=== PATIENT | female | born 1995 | race Caucasian/White ===

== ENCOUNTER 2023-04-18 07:10 | Inpatient (IN) | payer OTHER, SELFPAY ==
[2023-04-18] VITALS (50 sets, daily range): BP systolic 107–157; BP diastolic 56–102; PULSE 71–105; RESP 16; TEMP 36.8–37; O2SAT 92–100; BMI 36.6
[2023-04-18 09:06] LABS: Basophils Absolute Auto 0.05 K/uL (0.00-0.30); Basophils Percent Auto 0.5 % (0.0-3.0); Eosinophils Absolute Auto 0.03 K/uL (0.00-0.50); Eosinophils Percent Auto 0.3 % (0.0-7.0); Hematocrit 32.2 % (33.0-51.0); Immature Granulocytes Abs Auto 0.05 K/uL (0.00-0.30); Immature Granulocytes Pct Auto 0.5 %; Mean Corpuscular HGB Conc 31 gm/dL (32-36); Mean Corpuscular Hemoglobin 25 pg (26-34); Mean Corpuscular Volume 79 fL (80-100); Monocytes Percent Auto 8.1 % (0.0-11.0); Neutrophils Percent Auto 72.6 % (42.0-72.0); Platelet Count* 262 K/uL (140-440); RDW Coefficient of Variation % 14.4 % (11.5-15.5); Red Blood Count 4.08 m/uL (4.00-5.20)
[2023-04-18 09:08] LABS: Slide Review Reflex No
[2023-04-18] MEDS: miSOPROStoL 25 MCG/0.25 TABLET VAGINAL ×3 (09:15→16:07)
[2023-04-18] MEDS: LACTATED RINGERS 1000 ML 1,000 ML 500 ML IV (18:40)
[2023-04-18] MEDS: fentaNYL 100 MCG/2 ML inj IVP (18:52)
[2023-04-18] MEDS: LIDOCAINE 2% (PF) 5 ML VIAL EPIDURAL (19:40)
[2023-04-18] MEDS: ROPIVACAINE 0.2 % PF 10 ML INJ 20 MG EPIDURAL (19:40)
[2023-04-18] MEDS: ROPIVACAINE 0.2% 100 ml 100 ML 12 MG EPIDURAL (19:42)
--- NOTE | 2023-04-18 19:43 | PM.ANBPRC ---
PFSH PFS Social History What is your current living situation?: I presently have a place to live Problems where you live: no known problems In the past 12 months, utilities in danger of being shut off: no In the past 12 mos, have been you worried that your food would run out before you had money to buy more?: never true In the past 12 mos, the food you bought just didn't last and you didn't have money to buy more?: never true Smoking Status: Never smoker How often does anyone, including family, friends and others, physically hurt you: never How often does anyone, including family, friends and others, insult or talk down to you: never How often does anyone, including family, friends and others, threaten you with harm: never How often does anyone, including family, friends and others, scream or curse at you: never Results Labs Labs: Laboratory Results - last 24 hr 04/18/23 09:00 WBC 9.90 RBC 4.08 Hgb 10.0 L Hct 32.2 L MCV 79 L MCH 25 L MCHC 31 L RDW Coeff of Alex 14.4 Plt Count 262 Neut % (Auto) 72.6 H Lymph % (Auto) 18.0 L [place] % (Auto) 8.1 Eos % (Auto) 0.3 Baso % (Auto) 0.5 Neut # (Auto) 7.20 H Lymph # (Auto) 1.80 [place] # (Auto) 0.80 Eos # (Auto) 0.03 Baso # (Auto) 0.05 Abs Immat Gran (auto) 0.05 Imm/Tot Granulo (auto) 0.5 Blood Type A Positive Antibody Screen NEGATIVE Vital Signs Vital Signs: Last Vital Signs Temp 98.2 F 04/18/23 16:10 Pulse 82 04/18/23 19:42 BP 138/79 04/18/23 19:42 Pulse Ox 100 04/18/23 19:40 Weight: 93.9 kg Height: 160.02 cm Anesthesia Procedures Epidural Insertion Patient Location: OB Start Time: 18:50 Stop Time: 19:43 Start Date: 04/18/23 Stop Date: 04/18/23 Reason for Block: procedure for pain Patient Position: sitting Performed By: Geremias Vega Preanesthetic Checklist: IV checked, risks and benefits discussed, surgical consent, monitors and equipment checked, pre-op evaluation, timeout performed and anesthesia consent Prep: chlorhexidine gluconate Monitoring: blood pressure monitoring, continuous pulse oximetry and heart rate Approach: midline Vertebral Space: lumbar (1-5) Needle Type: Tuohy needle Injection Technique: continuous catheter Needle gauge: 17 Needle Length (cm): 10 cm Needle Insertion Depth (cm): 7 Catheter Gauge: 19 Catheter Type: multi-orifice Catheter at skin depth (cm): 13 Test Dose Result: negative and lidocaine 1.5% with epinephrine 1 to 200,000
--- NOTE | 2023-04-18 20:44 | PM.OBHPLI ---
OB - H&P: HPI Labor/Induction History of Present Illness Time Seen by Provider: 17:45 Date Seen: 04/18/23 Chief Complaint: The patient is a 28 year old 3 para 0020 at 39+1 weeks gestation by 7 wk US, who presents for IOL for suspected macrosomia. Chief complaint: Maternity : 3 Para: 0 Indications for induction: other (suspected macrosomia) Narrative: Shelli Mullins is a 28 year old female at 39+1 weeks by 7 wk US who presents for IOL for suspected macrosomia. Measuring ahead of dates and 36 wk US showed EFW >90th perentile, AC >98th percentile. Failed GCT, but passed 3 hour. Anxiety well-controlled with lexapro. GBS negative. Upon admission, cervix was 1.5/50/-3. Upon evaluation, patient is s/p 3 doses of vaginal cytotec. Regular contractions and becoming more uncomfortable. Just felt a gush of fluid. FHT have been reassuring. History of Present Dating criteria: based on 1st trimester US only care: good care Ultrasounds: normal 1st trimester US and normal mid trimester US Abnormal ultrasound findings: 36 wk growth US with EFW >90th percentile, AC >98th percentile. Normal amniotic fluid. complications: other (Suspected macrosomia) Labs Blood type: A (+) positive Rubella: immune RPR/VDLR: nonreactive GBS status: negative HBsAG: negative Review of Systems Status of ROS: Reports: 10 or more systems reviewed and unremarkable except as noted in History and below Meds Home Medications and Allergies Home Medications Medication Instructions Recorded Confirmed Type escitalopram oxalate 10 mg tablet 10 mg PO DAILY 04/18/23 04/18/23 History hydroxyzine pamoate 25 mg capsule 25 mg PO DAILY PRN anxiety 04/18/23 04/18/23 History vitamins no.144-folic 2 tab PO DAILY 04/18/23 04/18/23 History acid 400 mcg chewable tablet () Allergies Allergy/AdvReac Type Severity Reaction Status Date / Time No Known Drug Allergies Allergy Verified 04/18/23 20:33 OB - H&P: Exam Physical Exam: Vital signs: Temp Pulse Resp BP Pulse Ox 98.5 F 77 16 110/63 100 04/18/23 19:53 04/18/23 20:37 04/18/23 19:53 04/18/23 20:37 04/18/23 20:15 Narrative: General appearance: Well-appearing adult female. Alert, oriented and appropriate. Standing beside hospital bed, breathing through contractions. HEENT: EOMI, no conjunctival injection or discharge. MMM. Neck: Supple. CV: RRR, no rubs, murmurs or extra heart sounds. Pulm: CTAB, no wheezes, rales or rhonchi. Abdomen: Gravid. MSK: Moving all extremities. Ext: Warm and well-perfused. Trace LE edema. Skin: No rashes appreciated over exposed skin. Neuro: Grossly normal strength and sensation. No focal deficits. Psych: Normal affect. Detailed Labor and Delivery Exam: Patient Gravid: Yes Dilation (cm): 4 Effacement (%): 70 Cervix position: posterior Consistency: soft Contraction frequency (min): 2 Fetus (Single): Station: -2 Amniotic Membrane Status: SROM (probable) Amniotic Membrane Fluid Description: Clear OB - Results Labs Labs: Short CBC 04/18/23 Range/Units 09:00 WBC 9.90 (4.50-11.00) K/uL Hgb 10.0 L (12.0-16.0) gm/dL Hct 32.2 L (33.0-51.0) % Plt Count 262 (140-440) K/uL OB - Problem Based A/P Additional Plan (1) Term : Status: Acute (2) macrosomia: Status: Acute Plan - Louis regularly, likely SROM. No additional cytotec. Consider pitocin for augmentation pending contraction pattern - Epidural upon request - GBS negative - FHT reassuring - Anticipate vaginal delivery
[2023-04-18] MEDS: LACTATED RINGERS 1000 ML 1,000 ML 125 ML IV (21:52)
[2023-04-18] MEDS: OXYTOCIN 30 unit/500 ML in NS 30 UNIT/500 ML BAG IVPB (23:00)
[2023-04-18] MEDS: ONDANSETRON 2 MG/ML inj 4 MG IV (23:32)
[2023-04-19] VITALS (30 sets, daily range): BP systolic 115–227; BP diastolic 56–171; PULSE 66–114; RESP 16–18; TEMP 36.2–37.2; O2SAT 97–100
--- NOTE | 2023-04-19 00:20 | P.OBPN_ITS ---
Subjective Time Seen by Provider: 00:20 Date Seen: 04/19/23 Narrative: Patient s/p 3 doses vaginal cytotec with regular, painful contractions. 4.5/70/- 2 at 1745. SROM for clear fluid around that time. Epidural placed for pain control with good relief. Started feeling pressure with contractions, found to be rim/100/+1 at 2115. Objective Vital Signs: Last Vital Signs Temp 98.2 F 04/19/23 00:08 Pulse 82 04/19/23 00:08 Resp 18 04/19/23 00:08 BP 136/80 04/19/23 00:08 Pulse Ox 100 04/18/23 20:15 Pelvic Exam Dilation (cm): 10 Effacement (%): 100 Station: +2 Contractions Contraction Frequency: Q2-4 Contraction pattern: Regular Pitocin Rate (mU/min): 1 Assessment Assessment: active labor Station: +2 Amniotic Membrane Status: SROM Status: Category ll Heart Rate Baseline: 120 Track Rider Variability: Moderate (6-25) Monitor Accelerations: Present Monitor Decelerations: Early Tracing Comments: Early and variable decelerations with pushing. Plan Plan: - Complete and pushing - Epidural with good effect - status reassuring - Anticipate vaginal delivery
[2023-04-19] MEDS: LIDOCAINE 1 % PF 30 ML INJECTION (01:47)
--- NOTE | 2023-04-19 02:06 | W.PM.OBVAGDE ---
OB Procedure Vag Delivery Mother Details Mother Details: The patient is a 28 year-old, 3, Para 0, admitted on 04/18/23 at Days gestation. : 3 Para: 0 Weeks Gestation: 39.2 Admission Date: 04/18/23 Additional Details Amniotic Membrane Status: SROM (probable) Amniotic Membrane Rupture Date: 04/18/23 Amniotic Membrane Rupture Time: 17:45 Amniotic Membrane Fluid Description: Clear Analgesia/Anesthesia Type: Epidural Waterbirth: No Pitcoin: Yes Intrapartal Events: Labor Induction (suspected macrosomia) Induction Method: per misoprostol protocol (vaginal x 3 doses) Delivery augmentation: pitocin Labor Onset: 17:45 Complete: 23:57 Pushin:02 Heart: heart tones during second stage were category 2. Early and variable decelerations with pushing, good recovery. Delivery Details Delivery Date: 04/19/23 Delivery Time: 01:37 Route of delivery: Infant Gender: Male Viability: Alive; Heart Rate Present Position at Delivery: OA Delivery Details: Delivered over intact perineum via spontaneous vaginal delivery. Infant was placed on maternal abdomen.? Cord was clamped and cut after a 30-60 second delay. Nose and mouth were bulb suctioned.? weight pending. 1 Minute Interval Total Score: 8 5 Minute Interval Total Score: 9 Additional Details Shoulder Dystocia: No Placenta Delivery Time: 01:40 Placental Delivery Description: Spontaneous Delivery repair: Vicryl Procedure Done: Global Blood Loss: 300 Laceration: Vaginal - 1st Degree Episiotomy Description: None Blood Loss Measurement Type: QBL Bakri Used: No Sponge/Need Count Correct: Yes Cord Vessel Description: 3 Vessels Event Summary Status: Mother and infant were stable after delivery. Disposition: floor
[2023-04-19] MEDS: IBUPROFEN 600 MG TABLET PO ×4 (02:12→22:35)
[2023-04-19] MEDS: ACETAMINOPHEN 500 MG TABLET 1000 MG PO ×3 (05:09→23:57)
[2023-04-19] MEDS: DOCUSATE SODIUM 100 MG CAPSULE PO (09:16)
[2023-04-20] MEDS: IBUPROFEN 600 MG TABLET PO (05:10)
[2023-04-20] MEDS: ACETAMINOPHEN 500 MG TABLET 1000 MG PO (06:53)
[2023-04-20 08:40] VITALS: BP 108/72; PULSE 69; RESP 16; TEMP 36.5; O2SAT 97
--- NOTE | 2023-04-20 09:45 | PM.OBDSVD1 ---
DS: Providers Provider Time Seen by Provider: 09:45 Date Seen: 04/20/23 Date of admission: 04/18/23 07:10 Primary care physician: Linda Perez MD Admitting Clinician: Bessie Feng MD Attending Physician on discharge: Willow Sheffield MD DS: Diagnosis Discharge Diagnosis (1) Breast feeding status of mother: Status: Acute (2) (normal spontaneous vaginal delivery): Status: Acute Exam Const: Vital Signs, click to edit/add: Vital Signs - 24 hr 04/19/23 12:30 04/19/23 16:30 04/19/23 21:05 Temperature 97.9 F 97.6 F 97.2 F L Pulse Rate [Blood Pressure Cuff] 88 89 80 Respiratory Rate 18 16 16 Blood Pressure [Ri ght Arm] 119/81 134/84 136/83 Pulse Oximetry 100 99 Oxygen Delivery Me thod 04/19/23 23:59 04/20/23 08:40 Temperature 97.6 F 97.7 F Pulse Rate [Blood Pressure Cuff] 66 69 Respiratory Rate 16 16 Blood Pressure [Ri ght Arm] 124/83 108/72 Pulse Oximetry 97 97 Oxygen Delivery Me thod Room Air Room Air Common normals: no apparent distress and oriented x3 HENMT: Common normals: normocephalic Head and scalp: normocephalic Neck & C-Spine: Common normals: full ROM Resp: Common normals: normal respiratory effort Cardio: Common normals: regular rate, regular rhythm, S1 normal heart sound, S2 normal heart sound and no murmurs Rate: regular rate Rhythm: regular rhythm Heart sounds: S1 normal and S2 normal GI: Auscultation: normoactive bowel sounds : OB/external & speculum: Yes deferred Uterus: U/2 Extremity: Common normals: normal to inspection and full ROM Neuro: Common normals: oriented x3 Speech: speech normal Gait (neuro): normal gait OB - DS: Summary Hospital Course Hospital Course: The patient is a 28 year old G 3 P 1 at 39.2 weeks gestation that was admitted to the Center on 04/18/23 for IOL for presumed macrosomia. She had an uncomplicated vaginal delivery. She delivered a viable male infant. She is breast feeding. the patient has done well. Bleeding is well controlled. Pain is manageable. Peripartum Data Infant delivery method: Vaginal complications: none [place] Infant Gender: Male Discharge Plan: Home Status at Discharge Functional status at discharge: independent ambulation Overall status at discharge: patient is back to baseline Time Spent with Patient Time attestation: Total time spent providing and/or coordinating discharge services: Time spent: Less than 30 minutes Discharge Plan Discharge Disposition: Home, Self-Care Date of Admission: 04/18/23 07:10 Primary Care Provider: Linda Perez Condition: Stable Anticipated Discharge Date/Time: 04/20/23 09:38 Discharge Medications: New (DME) breast pump Device See Rx Instructions .ROUTE Qty: 1 0RF Rx Instructions: As directed Continued hydroxyzine pamoate 25 mg capsule 25 mg PO DAILY PRN (Reason: anxiety) escitalopram oxalate 10 mg tablet 10 mg PO DAILY 400 mcg tablet,chewable 2 tab PO DAILY Discharge Orders: Discharge Order (Routine); Ordered 04/20/23 Ordered By: Willow Sheffield Patient Education: OB Vaginal/Breast Feeding Activity Level: Activity as Tolerated Activity Detail: Pelvic rest x 6 weeks Discharge Diet: Regular Diet Detail: high fiber, High iron diet Follow Up Appointments: Bessie Feng MD [Staff Physician] - (Please schedule 6 week visit. ) Linda Perez MD [Primary Care Provider] - Forms: [employer] Info Instructions
== END 2023-04-20 11:00 | disposition home or self-care (01) | DRG 807 ==
PROVIDERS: Admitting Provider Family Medicine; PCP Family Medicine; Visit Provider Family Medicine
DX: O36.63X0 Maternal care for excessive fetal growth, third trimester, not applicable or unspecified (principal); Z37.0 Single live birth; O99.344 Other mental disorders complicating childbirth; F41.9 Anxiety disorder, unspecified; O70.0 First degree perineal laceration during delivery; Z3A.39 39 weeks gestation of pregnancy
CPT/HCPCS: 01967; 36415; 59200; 85018; 85025; 86850; 86900; 86901; A9270; J2001; J2371; J2405; J2795; J3010; J7120

== ENCOUNTER 2025-09-18 11:19 | Emergency (ER) | payer OTHER, SELFPAY ==
--- OUTSIDE RECORDS SUMMARY | 2025-09-18 11:21 | XMS_ITS | Clinical Summary ---
Author Organization [employer] [facility] Address [address] [place] [address] Care Team Providers Care Piping Designer Name Role Phone Bessie Feng MD Unavailable [phone] Li Trinidad NP Primary Care Provider [phone] Allergies No known active allergies Medications MedicationSigDispense QuantityRefillsLast FilledStart DateEnd DateStatus hydrOXYzine pamoate (VISTARIL) 25 mg capsule Indications:Generalized anxiety disorderTake 1 Capsule (25 mg) by mouth once daily if needed for Anxiety. 30 Capsule ctive semaglutide (weight loss) (Wegovy) 0.5 mg/0.5 mL subcutaneous pen Indications:Overweight with body mass index (BMI) of 29 to 29.9 in adultINJECT 0.5 MG SUBCUTANEOUS ONCE WEEKLY FOR 28 DAYS. 6 mL Expired Active Problems ProblemNoted DateDiagnosed DateControlled substance agreement rgcpsk6901/03/2024 Generalized anxiety bkoleosb44/13/2021ttention deficit /13/2021 Overview (07/12/2021): Previously treated for ADD through [facility]. Not currently taking Adderall. LGSIL of cervix of undetermined tcbabhcnfjtb81/07/2018 Overview (11/21/2022): 09/05/2018 LSIL/HPV+ (age 23) 01/13/2021 NIL/HPV negative 10/31/2022 NIL/HPV negative Plan: Pap and HPV due 10/2025 Encounters DateTypeDepartmentCare WdvrMfzejfpwcrz00/20/5881Zlycro05/19/2025Nurse Triage [facility] [address] [place] [address] Bessie Feng MD 07/25/2025Refill [facility] [address] [place] [address] Li Trinidad, NONA Refill Request (Wegovy)from Last 3 Months Immunizations ImmunizationAdministration DatesNext DueCOVID-19 vaccine (Moderna 100mcg/0.5mL) MD SHAMIRV01/18/2021,1DTP-HIB1996,1996,1996DTaP 01/15/2001,07/07/1997,1996,1996,1996DTaP-HIB (TriHIBIT) 1996,1996,1996HIB PRP-T (ActHIB,Hiberix)1996,1996, 1996HPV 9 (Gardasil 9)12/26/2010,07/19/2008,01/19/2008Hepatitis A (Peds) 12/26/2010,02/12/2007Hepatitis A, Aeqvqehkiah28/29/2011,02/12/2007Hepatitis B (Adult)1996,1996,1996Hepatitis B (Peds)1996,1996, 1996Hepatitis B, Ddapnyjvbvw48/31/1997,1996,1996Hib Conjugate, Ylrljphsujs1996,1996,1996Human Papilloma Virus Vaccine 12/26/2010,05/26/2009,07/19/2008,01/19/2008Inactivated Polio Rhqlmad9401/15/2001, 1996,1996,1996Influenza Virus, Voxlzblduws97/07/2018, 05/26/2009,07/19/2008,11/09/2006Influenza, RDT93711/06/2017MENINGOCOCCAL VACCINE 2 VIAL 2MO-55YO (MENVEO)05/17/2014MMR01/15/2001,07/07/1997Meningococcal Vaccine (Menactra)01/19/2008Meningococcal Vaccine (Menomune)01/19/2008Oral Polio Vaccine 1996,1996,1996Polio Virus, Xyjiphgypqg13/18/2001,1996, 1996,1996Td, Preservative Free (age >= 7 Years)05/17/2014,01/19/2008 Tdap01/31/2023,05/17/2014,01/19/2008Varicella Wugxefs8502/12/2007,01/15/2001 Family History Medical HistoryRelationNameCommentsSeizuresBrotherADD / ADHDFatherDementia Maternal GrandfatherPsychiatric illnessMotherAnxietyRelationNameStatusComments BrotherFatherAliveMaternal GrandfatherDeceasedMaternal GrandmotherAliveMother AlivePaternal GrandfatherAlivePaternal GrandmotherAlive Social History Tobacco UseTypesPacks/DayYears UsedDateSmoking Tobacco: NeverPassive Smoke Exposure: NeverSmokeless Tobacco: Never Tobacco Cessation:Counseling Given: Not Answered Alcohol UseStandard Drinks/WeekCommentsYes2 (1 standard drink = 0.6 oz pure alcohol)PHQ-2AnswerDate RecordedPHQ-2 TOTAL REFVD546Social Connections AnswerDate RecordedDo you often feel lonely or isolated from those around you?0 04/24/2024Financial Resource StrainAnswerDate RecordedDifficulty of Paying Living Vojnlmhk794ifficulty of Paying Living ExpensesNot on file 04/24/2024Food InsecurityAnswerDate RecordedDo you worry your food will run out before you are able to buy more?Transportation NeedsAnswerDate RecordedDoes lack of transportation keep you from medical appointments?1 04/24/2024oes lack of transportation keep you from work, meetings or getting things that you need?Housing StabilityAnswerDate RecordedWhat is your housing situation today?UtilitiesAnswerDate RecordedDo you have trouble paying for utilities (for example, heat, electricity, water, phone)?1 04/24/2024EducationAnswerDate RecordedWhat is the highest level of school you have completed or the highest degree you have received?Master's degree (e.g., MA, MS, Jonathan, MEd, HAT FINISHING MATERIALS PREPARER, RONALD)01/19/2025CommentsNoSex and Gender InformationValueDate RecordedSex Assigned at RytyyNhzhdq52/01/2023 10:33 AM LAUNDRY BAG PUNCH OPERATOR Legal EolXgmpgt65/07/2018 3:14 PM CSTGender IqiortnbHuokzc46/01/2023 10:33 AM CSTSexual OrientationNot on file Obstetrics History GravidaParaTermPretermABIABSABEctopicMultipleLivingLive Gnjgwg98IkxwIaqtxgyYX Total LaborLabor/2nd/5lrXukkpsYabCbfyHulxFULKwsP3I6GtqgIgsn1990IV3f8a4699UT0y0g Last Filed Vital Signs Vital SignReadingTime TakenCommentsBlood Ccajozye225/7007 7:56 AM CDT Aysnz335403/31/2025 7:56 AM SHXLshvcratqwn88.6 ??C (97.8 ??F)03/03/2023 1:08 PM CDTRespiratory Rwot8063 1:08 PM CDTOxygen Hvsuwiwiam01%01/19/2025 12:57 PM CDTInhaled Oxygen Concentration--Vosebk92.5 kg (151 lb)03/31/2025 7:56 AM CDT Ykmuiy410.7 cm (5' 3.25)03/31/2025 7:56 AM CDTBody Mass Index26.5407 7:56 AM CDT Plan of Treatment DateTypeDepartmentCare Team (Latest Contact Info)Yodqydzfqiv92/20/2025 12:00 PM CSTOffice Visit [facility] [place] [address] [phone] Care, [facility] Urgent 10/04/2025 1:00 PM CSTPhone OB Encounter [facility] [address] [place] [address] 10/08/2025 8:40 AM CSTOB Encounter [facility] [address] [place] [address] Bessie Feng MD [address] [place] [address] Health MaintenanceDue DateLast DoneCommentsHIV for age 15-65002/17/2011COVID-19 vaccine series (2024- season)/, 12/20/2020Influenza Vaccine (#1), 09/05/2018, 05/26/2009, Additional history existsPap test for age 21-650//09/2022, 10/31/2022, 01/13/2021, Additional history existsDepression screening for age 12+/, 01/19/2025, 04/24/2024, Additional history existsBMI (ht and wt on same day) for age 18+/10/2024, 01/19/2025, 01/03/2024, Additional history exists Tetanus gnxipvf97/12/2022, 05/17/2014, 05/17/2014, Additional history existsHepatitis B series for 19+Hwsrbfsrd05/31/1997, 1996, 1996, Additional history existsHPV series for age 9-52Qmbcdjqev39/29/2011, 12/26/2010, 05/26/2009, Additional history existsHepatitis C screening for age 18-79 Exxawzmkf82/01/2022Pneumococcal series for age 6-49Aged OutNo longer eligible based on patient's age to complete this topic Procedures Procedure NamePriorityDate/TimeAssociated DiagnosisCommentsHPV HIGH RISKRoutine 10/31/2022 4:55 PM LAUNDRY BAG PUNCH OPERATOR Screening for cervical cancer ANTI OWMRcgzmbm45/01/2022 5:10 PM LAUNDRY BAG PUNCH OPERATOR Supervision of normal first , antepartum (HC) from Last 3 Months or Most Recently Relevant to Health Maintenance Results * HPV HIGH RISK (10/31/2022 4:55 PM LAUNDRY BAG PUNCH OPERATOR)ComponentValueRef RangeTest Method Analysis TimePerformed AtPathologist SignatureTYPE 16NegativeNegative 11/06/2022 1:40 PM CSTSH[facility] LABORATORYTYPE 18 UrppabvuRvzecsnu45/07/2023 1:40 PM CSTSHARKEY [facility] LABORATORYOTHER HIGH RISK UZIIVZyvbqupnHlrvgyed76/07/2023 1:40 PM CSTSHARKEY [facility] LABORATORYSpecimen (Source)Anatomical Location / LateralityCollection Method / VolumeCollection TimeReceived TimeOther (Cervical)Non-Blood / Wtbdhkd7810/31/2022 4:55 PM CST11/02/2022 11:36 AM LAUNDRY BAG PUNCH OPERATOR Narrative [facility] - 11/06/2022 1:40 PM LAUNDRY BAG PUNCH OPERATOR HPV types 16, 18, 31, 33, 35, 39, 45, 51, 52, 56, 58, 59, 66 and 68 DNA were undetectable or below the pre-set threshold. Methodology: Denny Emir 4800 HPV Test Authorizing ProviderResult TypeResult StatusRobyn Liberty Feng MDMICROBIOLOGY Final ResultPerforming OrganizationAddressCity/State/ZIP CodePhone Number [facility] [address] [place] [address], * ANTI HCV (08/30/2022 5:10 PM LAUNDRY BAG PUNCH OPERATOR)ComponentValueRef RangeTest MethodAnalysis TimePerformed AtPathologist SignatureHEPATITIS C ANTIBODYNon-Reactive Non-Mnveqlja49/03/2022 10:01 PM CSTSH[facility] Comment:Antibodies to HCV not detected; does not exclude the possibility of exposure to HCV.Specimen (Source)Anatomical Location / LateralityCollection Method / VolumeCollection TimeReceived TimeBloodBLOOD SPECIMEN / Unknown Venipuncture / Grgociu1908/30/2022 5:10 PM CST08/30/2022 5:11 PM LAUNDRY BAG PUNCH OPERATOR Narrative Authorizing ProviderResult TypeResult StatusRobderrick Feng MDSNITHYA OUTSFinal ResultPerforming OrganizationAddressCity/State/ZIP CodePhone Number [facility] [address] [place] [address], [place] from Last 3 Months or Most Recently Relevant to Health Maintenance Insurance * Guarantor: Shelli Mullins AAccount TypeRelation to PatientDate of BirthPhone Billing AddressPersonal/PtuuygDdko1995 [id number] [place] [id number] Care Teams Team MemberRelationshipSpecialty[place] [address] [place] [address] PCP - GeneralNurse Practitioner06/01/25 Bessie Feng MD [address] [place] [address] Family [facility]02/01/23
--- OUTSIDE RECORDS SUMMARY | 2025-09-18 11:21 | XMS_ITS | Clinical Summary ---
Author Organization [facility] Address [address] [place] [address] Care Team Providers Care Supervisory Examiner Name Role Phone Unavailable Primary Care Provider Unavailabl e Allergies No known active allergies Medications MedicationSigDispense QuantityRefillsLast FilledStart DateEnd DateStatus escitalopram (Lexapro) 10 mg tablet Take 10 mg by mouth in the morning.06/05/2023ctive hydrOXYzine pamoate (Vistaril) 25 mg capsule Take 25 mg by mouth if needed at bedtime.06/05/2023ctive Active Problems ProblemNoted DateDiagnosed DateGeneralized anxiety hezbqgla10/13/2021ttention deficit frxtphaw53/13/2021 Overview (08/01/2023): Previously treated for ADD through [facility]. Not currently taking Adderall. Social History Tobacco UseTypesPacks/DayYears UsedDateSmoking Tobacco: NeverSmokeless Tobacco: Never Tobacco Cessation:Counseling Given: Not Answered CommentsUnknownSex and Gender InformationValueDate RecordedSex Assigned at QnhkfZtunmf13/02/2023 6:06 AM CDTLegal NrfWgultf25/02/2023 6:06 AM CDTGender DgaqgulqLnqbwk06/02/2023 6:06 AM CDTSexual OrientationNot on file Plan of Treatment Not on file
[2025-09-18 11:23] VITALS: BP 145/102; PULSE 74; TEMP 36.6; O2SAT 97; BMI 30.4
--- NOTE | 2025-09-18 11:49 | ED_ITS ---
HPI - General Adult General Date Seen: 09/18/25 Chief complaint: Vaginal Bleeding Stated complaint: 6 weeks , bleeding Time Seen by Provider: 09/18/25 11:36 History of Present Illness HPI narrative: 30-year-old female who is currently about 6 weeks , presenting to the emergency department with concern for vaginal bleeding. She is . She also has a history of ADHD, anxiety, LGSIL upper cervix. Her last menstrual cycle began 08/04/2025 (she is 6w3d). She normally gets care through the [facility]. Her blood type is A positive. Most recent CBC was in December 2024. At that time white count was 8.1, hemoglobin was 14.5, platelet count 295. She has been doing well during this . She had experienced a little bit of morning sickness and breast tenderness a couple weeks ago but generally has been doing well lately. She started having a little bit of light vaginal spotting yesterday and so small volume vaginal bleeding with small pea-sized clots of blood this morning. She is not having any pelvic cramping or abdominal pain. No fever chills. No trouble with urination. No trouble with bowel movements. No blood in her stool. No other unusual bleeding or bruising. She is not lightheaded or dizzy. She had a Pap smear and pelvic exam couple of years ago that was normal. She has not been due for any follow-up Pap smear since then. No history of any significant cervical cancers. Related Data Home Medications ?Medication ?Instructions ?Recorded ?Confirmed vitamins no.144-folic 2 tab PO DAILY 04/18/23 09/18/25 acid 400 mcg chewable tablet () Previous Rx's ?Medication ?Instructions ?Recorded breast pump #1 ea 04/20/23 Allergies Allergy/AdvReac Type Severity Reaction Status Date / Time No Known Drug Allergies Allergy Verified 09/18/25 11:23 [facility] Medical History (Updated 09/18/25 @ 13:18 by Alirio Samson MD) macrosomia Term ?Z34.90 - Encounter for supervision of normal , unspecified, unspec ified trimester (ICD-10) Social History What is your current living situation?: I presently have a place to live Problems where you live: no known problems In the past 12 months, utilities in danger of being shut off: no In past 12 months, lack of transportation kept you from medical appts, meetings, work, or getting things needed for daily living: no In the past 12 mos, have been you worried that your food would run out before you had money to buy more?: never true In the past 12 mos, the food you bought just didn't last and you didn't have money to buy more?: never true Smoking Status: Never smoker Non-prescribed substance use: denies use How often does anyone, including family, friends and others, physically hurt you : never How often does anyone, including family, friends and others, insult or talk down to you: never How often does anyone, including family, friends and others, threaten you with harm: never How often does anyone, including family, friends and others, scream or curse at you: never Exam Narrative: Exam Narrative: Constitutional: Appears well-developed and well-nourished. Alert. Conversant. Non toxic. HENT: Head: Atraumatic. Nose: Nose normal. Mouth/Throat: Oral mucosa is clear and moist. no trismus. Pharynx normal. Eyes: Conjunctivae normal. EOM normal. Pupils equal, round, and reactive to light. No scleral icterus. Neck: Normal range of motion. Neck supple. No tracheal deviation present. Cardiovascular: Normal rate, regular rhythm. No gallop. No friction rub. No murmur heard. Symmetric radial artery pulses Pulmonary/Chest: Effort normal. No stridor. No respiratory distress. No wheezes. No rales. No rhonchi . No tenderness. Abdominal: Soft. Bowel sounds normal. No distension. No mass. No palpable uterine enlargement. No tenderness. No rebound. No guarding. Musculoskeletal: RUE: Normal range of motion. No tenderness. No deformity LUE: Normal range of motion. No tenderness. No deformity RLE: Normal range of motion. No edema. No tenderness. No deformity LLE: Normal range of motion. No edema. No tenderness. No deformity Neurological: Alert and oriented to person, place, and time. Normal strength. CN II-VII intact. No sensory deficit. GCS eye subscore is 4. GCS verbal subscore is 5. GCS motor subscore is 6. Normal coordination Skin: Skin is warm and dry. No rash noted. No pallor. Normal capillary refill. Psychiatric: Normal mood. Normal affect. Const: Vital Signs, click to edit/add: Vital Signs - 24 hr 09/18/25 11:23 09/18/25 14:20 Temperature 97.8 F Pulse Rate 78 Pulse Rate [Pulse Oximeter] 74 Respiratory Rate 14 Blood Pressure 120/81 Blood Pressure [Ri ght Upper Arm] 145/102 H Pulse Oximetry 97 99 Oxygen Delivery Me thod Room Air Course Course ED Course: Recheck ambulatory in the hallway to the bathroom and back. Reevaluation(s) Reevaluation #1: Recheck-ultrasound related. Calling CRL Reevaluation #2: Recheck-ultrasound back. Patient remains stable. Minimal ongoing bleeding. Feeling fine. Discussed concerning results. High suspicion for probable missed and early withdrawal bleeding at this point. Discussed the diff erential still would include ectopic. Less likely would be a very early intrauterine gestation (but that seems unlikely because of the patient's timing of LMP and positive test) Vital Signs Vital signs: Initial Vital Signs Temperature 97.8 F 09/18/25 11:23 Temperature Source Temporal Artery Scan 09/18/25 11:23 Pulse Rate 74 09/18/25 11:23 Pulse Rhythm Regular 09/18/25 11:23 Blood Pressure 145/102 H 09/18/25 11:23 Blood Pressure Mean 116 H 09/18/25 11:23 Blood Pressure Position Sitting 09/18/25 11:23 Pulse Oximetry 97 09/18/25 11:23 Oxygen Delivery Method Room Air 09/18/25 11:23 Vital Signs Temperature 97.8 F 09/18/25 11:23 Pulse Rate 74 09/18/25 11:23 Blood Pressure 145/102 H 09/18/25 11:23 Pulse Oximetry 97 09/18/25 11:23 Oxygen Delivery Method Room Air 09/18/25 11:23 Temperature 97.8 F 09/18/25 11:23 Pulse Rate 78 09/18/25 14:20 Respiratory Rate 14 09/18/25 14:20 Blood Pressure 120/81 09/18/25 14:20 Pulse Oximetry 99 09/18/25 14:20 Oxygen Delivery Method Room Air 09/18/25 11:23 Medical Decision Making MDM Narrative Medical decision making narrative: This is a pleasant female was approximately 6 weeks 3 days based on LMP. She presents for evaluation of small volume vaginal spotting and vaginal bleeding that began yesterday. I considered a broad differential including spontaneous miscarriage, ectopic , ovarian cyst, UTI, pyelonephritis, subchorionic hemorrhage, uterine bleeding, active miscarriage, constipation, etc. She has not yet had any imaging for this because it is so early. Quantitative hCG is positive at 44 but lower than we would expect for a 6 week gestation. Normal transvaginal pelvic ultrasound shows an empty uterus. This is concerning for possible missed . Differential would also include a very early , or other abnormal gestation such as an ectopic that is currently too small to visualize on ultrasound. At this point I do not think the patient needs to be admitted for ectopic or hemoglobin monitoring. Discussed that she needs follow up with ER or with her Ob clinic in about 48 hours for repeat labs and, if necessary, repeat ultrasound she is not having any abdominal pain or pelvic pain or tenderness to raise concern for other pathology such as UTI, appendicitis, cholecystitis, volvulus, intraabdominal abscess, among others. In this patient, there are no signs of serious etiologies of abdominal pain. The workup here suggests likely spontaneous missed . There is no clear intrauterine or adnexal or other masses.At this point, patient is hemodynamically stable, hemoglobin is reassuring, and bleeding is not predicted to become life threatening. Plan is home, close follow-up with OB, threatened miscarriage precautions, and return to ED for worsening pain, heavy vaginal bleeding (more than 1 pad soaked every hour). Questions were answered. Lab Data Labs: Lab Results 09/18/25 Range/Units 12:07 WBC 9.37 (4.50-11.00) K/uL RBC 5.04 (4.00-5.20) m/uL Hgb 14.7 (12.0-16.0) gm/dL Hct 43.5 (33.0-51.0) % MCV 86 (80-100) fL MCH 29 (26-34) pg MCHC 34 (32-36) gm/dL RDW Coeff of Alex 11.8 (11.5-15.5) % Plt Count 291 (140-440) K/uL Neut % (Auto) 67.7 (42.0-72.0) % Lymph % (Auto) 24.1 (20-44) % [place] % (Auto) 7.0 (0.0-11.0) % Eos % (Auto) 0.7 (0.0-7.0) % Baso % (Auto) 0.4 (0.0-3.0) % Neut # (Auto) 6.33 (1.7-7.0) K/uL Lymph # (Auto) 2.26 (0.90-2.90) K/uL [place] # (Auto) 0.70 (0.00-0.90) K/UL Eos # (Auto) 0.07 (0.00-0.50) K/uL Baso # (Auto) 0.04 (0.00-0.30) K/uL Abs Immat Gran (auto) 0.01 (0.00-0.30) K/uL Imm/Tot Granulo (auto) 0.1 % Sodium 137 (135-149) mmol/L Potassium 4.2 (3.6-5.1) mmol/L Chloride 104 (96-114) mmol/L Carbon Dioxide 25 (20-32) mmol/L Anion Gap 8 (7-15) mEq/L BUN 13 (5-24) mg/dL Creatinine 0.7 (0.5-1.5) mg/dL Estimated Creat Clear 98.09 Estimated GFR 120 ml/min Glucose 93 (60-115) mg/dL Calcium 9.8 (8.4-10.6) mg/dL HCG, Quant 44.91 mIU/mL Imaging Data US Pelvic with TV: Attestation: I have reviewed the pertinent imaging results. Radiologist's impression: IMPRESSION: 1. No intrauterine is identified. Consider correlation with serial beta HCG. 2. Endometrial thickness is 6.2 mm. 3. Normal sonographic appearance of the bilateral ovaries. Discharge Plan Discharge Clinical Impression: , spontaneous threatened Patient Disposition: Home, Self-Care Condition: Stable Instructions: Threatened Miscarriage (ED) Additional Instructions: As we discussed, your workup today is concerning. Your ultrasound does not show any growing in your uterus and your hormone level is lower than we would expect based on your gestational age. I am concerned that you may have had a miscarriage. However , it is very important for you to follow-up with your doctor (or come back to the ER if needed) for recheck labs and re- evaluation within 48-72 hours. If you have worsening symptoms such as pelvic cramping, heavy vaginal bleeding, lightheadedness or dizziness, fever, or any other problems please come back to the ER or see your doctor immediately. Prescriptions: No Action 400 mcg tablet,chewable 2 tab PO DAILY (DME) breast pump Device See Rx Instructions .ROUTE Qty: 1 0RF Rx Instructions: As directed Follow Up/Referrals: Linda Perez MD [Primary Care Provider, Family Practice] Stand Alone Forms: [employer] Info Instructions
--- NOTE | 2025-09-18 11:52 | CRLHL7_ITS ---
For Patients: As a result of the Century Cures Act, medical imaging exams and procedure reports are released immediately into your electronic medical record. You may view this report before your referring provider. If you have questions, please contact your health care provider. INDICATION: LMP 08/04/2025, positive test in early August, hCG 44 today. Bleeding started yesterday. TECHNIQUE: Ultrasound OB pelvis transabdominal and transvaginal. Real-time mcmahon-scale imaging of the pelvis was performed. COMPARISON: None. FINDINGS: Intrauterine gestation: Nonvisualized. KENTRELL by LMP: 05/11/2026. Uterus: Endometrial thickness is 6.2 mm. Ovaries and adnexa: Ovaries are unremarkable. No adnexal mass identified. Suspicious pelvic fluid collections: Trace fluid in the cul-de-sac. IMPRESSION: 1. No intrauterine is identified. Consider correlation with serial beta HCG. 2. Endometrial thickness is 6.2 mm. 3. Normal sonographic appearance of the bilateral ovaries. Dictated by Tomer Mendenhall MD @ 09/18/2025 2:37:42 PM (Electronically Signed)
[2025-09-18 12:13] LABS: Hematocrit* 43.5 % (33.0-51.0); Hemoglobin* 14.7 gm/dL (12.0-16.0); Immature Granulocytes Abs Auto 0.01 K/uL (0.00-0.30); Immature Granulocytes Pct Auto 0.1 %; Lymphocytes Absolute Auto 2.26 K/uL (0.90-2.90); Mean Corpuscular HGB Conc 34 gm/dL (32-36); Mean Corpuscular Hemoglobin 29 pg (26-34); Mean Corpuscular Volume 86 fL (80-100); RDW Coefficient of Variation % 11.8 % (11.5-15.5); Red Blood Count* 5.04 m/uL (4.00-5.20); White Blood Count* 9.37 K/uL (4.50-11.00)
[2025-09-18 12:22] LABS: Slide Review Reflex No
[2025-09-18 12:25] LABS: Chloride* 104 mmol/L (96-114); Potassium* 4.2 mmol/L (3.6-5.1); Sodium* 137 mmol/L (135-149)
[2025-09-18 12:28] LABS: Anion Gap 8 mEq/L (7-15); Blood Urea Nitrogen* 13 mg/dL (5-24); Carbon Dioxide* 25 mmol/L (20-32); Creatinine* 0.7 mg/dL (0.5-1.5); Est. Creatinine Clearance* 98.09; Estimated Glomerular Filt Rate 120 ml/min
[2025-09-18 12:29] LABS: Calcium* 9.8 mg/dL (8.4-10.6); Glucose* 93 mg/dL (60-115)
[2025-09-18 12:52] LABS: HCG Quantitative* 44.91 mIU/mL
[2025-09-18 14:20] VITALS: BP 120/81; PULSE 78; RESP 14; O2SAT 99
== END 2025-09-18 14:54 | disposition home or self-care (01) ==
PROVIDERS: Emergency Provider Emergency Medicine; PCP Family Medicine
DX: O20.0 Threatened abortion (principal); Z3A.01 Less than 8 weeks gestation of pregnancy
CPT/HCPCS: 36415; 76817; 80048; 84702; 85025; 93976; 99283; 99284